=== PATIENT | female | born 1950 | race Two or more races ===

== ENCOUNTER 2021-04-27 00:54 | Emergency (ER) | payer OTHER ==
[~2021-04-27] VITALS: Ht 157.5 cm; Wt 84.4 kg
[~2021-04-27 00:54] MED LIST: DICYCLOMINE HCL20 MG; PANTOPRAZOLE SO40 MG; VASOTEC10 MG; VASOTEC20 MG; ZANTAC150 M1
[2021-04-27] MEDS ORDERED: ACETAMINOPHEN650 M2 PO (05:22)
== END 2021-04-27 05:23 | disposition home or self-care (01) ==
LOC: ER 00:54
DX: G44.89 Other headache syndrome (principal); I16.1 Hypertensive emergency; I10 Essential (primary) hypertension